=== PATIENT | female | born 1985 | race Caucasian/White ===

== ENCOUNTER 2020-07-31 07:39 | Outpatient (CLI) | payer OTHER, SELFPAY ==
--- NOTE | ~2020-07-31 | US_ITS ---
EXAMINATION: US retroperitoneal comp DATE: 07/31/2020 08:40 INDICATION: Hydronephrosis. Right flank pain. TECHNIQUE: Multiple ultrasound grayscale images of the kidneys were obtained. COMPARISON: None. FINDINGS: The right kidney measures 9.5 x 4.1 x 4.2 cm. The left kidney measures 10.4 x 4.8 x 4.0 cm. The kidne ys demonstrate normal parenchymal echogenicity. There is no hydronephrosis. The bladder is normal. IMPRESSION: 1. Normal kidneys. No hydronephrosis. Reviewed, dictated and finalized at location A.
--- NOTE | ~2020-07-31 | NM_ITS ---
EXAMINATION: [facility] renal scan DATE: 07/31/2020 09:40 INDICATION: Hydronephrosis. TECHNIQUE: 8.4 mCi Tc-99m MAG3 was administered IV. 40 mg furosemide was administered IV immediately afterward. The patient was scanned in the upright/supine position. A posterior abdominal radionuclid e angiogram was obtained. A subsequent time course of static images of the kidneys, ureters, and blad jo was obtained. COMPARISON: Ultrasound kidneys 07/31/2020 FINDINGS: The posterior abdominal radionuclide angiogram and sequential static images show normal siz e, position, and morphology of the kidneys. Peak renal parenchymal uptake was 2 min in right kidney a nd 2 min in left kidney (normal peak 3-5 minutes). The relative early renal uptake was 55% on the ri ght and 45% on the left (<40% is abnormal). No abnormalities of the ureters or bladder are seen. T1/2 for clearance of activity from the right kidney and proximal collecting system was 5 minutes. T1/2 for clearance of activity from the left kidney and proximal collecting system was 5 minutes. IMPRESSION: 1. Symmetric kidney function. 2. No delay in contrast clearance from either kidney to suggest fixed obstruction. Reviewed, dictated and finalized at location A. IMPRESSION: 1. Symmetric kidney function. 2. No delay in contrast clearance from either kidney to suggest fixed obstruct ion.
== END 2020-07-31 07:40 | disposition home or self-care (01) ==
PROVIDERS: Visit Provider Urology
DX: N13.30 Unspecified hydronephrosis (principal)
CPT/HCPCS: 76770; 78708; A9562; J1940